=== PATIENT | female | born 1985 | race American Indian/Alaskan Native ===

== ENCOUNTER 2016-12-14 10:01 | Emergency (ER) | payer MEDICAID ==
[2016-12-14 10:19] VITALS: TEMP 98
--- NOTE | 2016-12-14 10:38 | ED PDOC ---
Arrival/HPI - General Chief Complaint: Lower Extremity Problem/Injury Time Seen by Provider: 12/14/16 10:29 Historian: Patient - History of Present Illness Narrative History of Present Illness (Text): 12/14/16 10:30 Darin Meehan is a 30 year old female who presents to the emergency department complaining of swelling and pain to left 3rd toe for 2 days. Patient reports that symptoms presented after she hit her toe against the bed frame. Reports that symptoms have not improved with time which prompted her to present to emergency department for evaluation. Denies taking any pain medication. Denies any numbness to the area, limited ROM, or any other complaints at this time. Time/Duration: < week (2 days ) Symptom Onset: Sudden Symptom Course: Improving Severity Level: Mild Activities at Onset: Light Context: Home Past Medical History - Provider Review Nursing Documentation Reviewed: Yes - Infectious Disease Hx of Infectious Diseases: None - Reproductive Menopause: No - Psychiatric Hx Substance Use: No - Anesthesia Hx Anesthesia: No Family/Social History - Physician Review Nursing Documentation Reviewed: Yes Family/Social History: No Known Family HX Smoking Status: Unknown If Ever Smoked Hx Alcohol Use: No Hx Substance Use: No Allergies/Home Meds Allergies/Adverse Reactions: Allergies seasonal Allergy (Uncoded 12/14/16 10:19) CONGESTION Review of Systems - Physician Review All systems were reviewed & negative as marked: Yes - Review of Systems Constitutional: Normal Respiratory: Normal Cardiovascular: Normal Musculoskeletal: Other (left 3rd toe pain and swelling. ) Psychiatric: Normal Physical Exam - Physical Exam Narrative Physical Exam (Text): Constitutional: No acute distress. Head: Normocephalic. Atraumatic. Eyes: PERRL. ENT: Moist mucous membranes. Neck: Supple. Cardiovascular: Regular rate. Chest: No tenderness. Respiratory: Clear to auscultation bilaterally. GI: Soft. Nontender. Nondistended. Back: No CVA tenderness. Musculoskeletal: tenderness to left 3rd digit proximal phalanx. Normal capillary refill. Skin: No rash. Neurologic: Alert, no focal deficit. Vital Signs Reviewed: Yes Vital Signs Temp Pulse Resp BP Pulse Ox 12/14/16 10:15 98 F 92 H 16 121/76 98 Temperature: Afebrile Blood Pressure: Normal Pulse: Regular Respiratory Rate: Normal Appearance: Positive for: Well-Appearing, Non-Toxic, Comfortable Pain Distress: None Mental Status: Positive for: Alert and Oriented X 3 Medical Decision Making ED Course and Treatment: 12/14/16 10:42 Impression: A 30 year old female who presents to the ed complaining of left 3rd toe pain for 2 days. Plan: -- X-ray -- Motrin -- Reassess and disposition Progress Notes: XR shows fracture of the proximal phalanx of the 3rd digit. Kaden tape, walking boot, crutches and instructed on their use, patient states she will make appointment for ortho. - RAD Interpretation Radiology Orders: 12/14/16 10:29 FOOT LEFT 3RD DIGIT (TOE) [RAD] Stat [employer] Pilot: ED Physician - Medication Orders Current Medication Orders: Discontinued Medications Ibuprofen (Motrin Tab) 600 mg PO STAT STA Stop: 12/14/16 10:30 Last Admin: 12/14/16 10:55 Dose: 600 MG MAR Pain/Vitals Document 12/14/16 10:55 WEB CONSULTANT (Rec: 12/14/16 10:57 WEB CONSULTANT [id number]) Pain Reassessment Is This A Pain ReAssessment? No - Scribe Statement The provider has reviewed the documentation as recorded by the Lucas Varela Provider Attestation: All medical record entries made by the Peteribpia were at my direction and personally dictated by me. I have reviewed the chart and agree that the record accurately reflects my personal performance of the history, physical exam, medical decision making, and the department course for this patient. I have also personally directed, reviewed, and agree with the discharge instructions and disposition. Disposition/Present on Arrival - Present on Arrival Any Indicators Present on Arrival: No History of DVT/PE: No History of Uncontrolled Diabetes: No Urinary Catheter: No History of Decub. Ulcer: No History Surgical Site Infection Following: None - Disposition Have Diagnosis and Disposition been Completed?: Yes Diagnosis: Toe fracture Disposition: HOME/ ROUTINE Disposition Time: 12:12 Patient Plan: Discharge Condition: STABLE Discharge Instructions (ExitCare): Toe Fracture (ED) Prescriptions: Ibuprofen [Motrin] 1 tab PO Q6 #30 tab Referrals: Seamus Becerril MD [Staff Provider] - Follow up with primary Forms: WORK NOTE
[2016-12-14 12:30] VITALS: BP 110/66; PULSE 68; RESP 18; O2SAT 99
--- NOTE | 2016-12-14 12:36 | RAD ---
Indication: Injury Left 3rd digit foot radiographs Comparison: None available Findings: Mildly displaced fracture deformity of the proximal 3rd phalanx with associated soft tissue swelling. No evidence of radiopaque foreign body. Remainder of the visualized osseous structures appear intact. No evidence of dislocation. Impression: Mildly displaced fracture deformity of the proximal 3rd phalanx with associated soft tissue swelling.
== END 2016-12-14 12:30 | disposition home or self-care (01) ==
LOC: ED 10:01 → MERGE 10:01 → ED 12:30
DX: S92.512A Displaced fracture of proximal phalanx of left lesser toe(s), initial encounter for closed fracture (principal); W22.03XA Walked into furniture, initial encounter; Y92.009 Unspecified place in unspecified non-institutional (private) residence as the place of occurrence of the external cause

== ENCOUNTER 2017-03-03 18:13 | Emergency (ER) | payer MEDICAID ==
[2017-03-03 18:25] VITALS: BMI 29.5
[2017-03-03 18:29] VITALS: BP 123/80; PULSE 92; RESP 16; TEMP 98.8
--- NOTE | 2017-03-03 18:31 | ED PDOC ---
Arrival/HPI - General Chief Complaint: Finger,Hand,&Wrist Time Seen by Provider: 03/03/17 18:26 Historian: Patient - History of Present Illness Narrative History of Present Illness (Text): 03/03/17 18:28 31yo female present with complaint of right had pain x 4days. Pain is localized to the 2nd MCP joint. She did not take any medication. Pain is usually when she makes a fist. Denies trauma, previous history, any other complaint. Past Medical History - Provider Review Nursing Documentation Reviewed: Yes - Infectious Disease Hx of Infectious Diseases: None - Psychiatric Hx Substance Use: No - Anesthesia Hx Anesthesia: No Family/Social History - Physician Review Nursing Documentation Reviewed: Yes Family/Social History: Unknown Family HX Smoking Status: Unknown If Ever Smoked Hx Alcohol Use: No Hx Substance Use: No Allergies/Home Meds Allergies/Adverse Reactions: Allergies seasonal Allergy (Uncoded 03/03/17 18:25) CONGESTION Review of Systems - Physician Review All systems were reviewed & negative as marked: Yes - Review of Systems Constitutional: Normal Eyes: Normal ENT: Normal Respiratory: Normal Cardiovascular: Normal Gastrointestinal: Normal Genitourinary Female: Normal Musculoskeletal: Arthralgias (Right hand) Skin: Normal Neurological: Normal Endocrine: Normal Hemo/Lymphatic: Normal Psychiatric: Normal Physical Exam Vital Signs Reviewed: Yes Vital Signs Temp Pulse Resp BP Pulse Ox 03/03/17 18:28 98.8 F 92 H 16 123/80 97 Temperature: Afebrile Blood Pressure: Normal Pulse: Regular Respiratory Rate: Normal Appearance: Positive for: Well-Appearing, Non-Toxic, Comfortable Pain Distress: None Mental Status: Positive for: Alert and Oriented X 3 - Systems Exam Head: Present: Atraumatic, Normocephalic Pupils: Present: PERRL Extroacular Muscles: Present: EOMI Conjunctiva: Present: Normal Mouth: Present: Moist Mucous Membranes Neck: Present: Normal Range of Motion Respiratory/Chest: Present: Clear to Auscultation, Good Air Exchange. No: Respiratory Distress, Accessory Muscle Use Cardiovascular: Present: Regular Rate and Rhythm, Normal S1, S2. No: Murmurs Abdomen: Present: Normal Bowel Sounds. No: Tenderness, Distention, Peritoneal Signs Back: Present: Normal Inspection Upper Extremity: Present: Normal ROM, NORMAL PULSES, Tenderness (Mild tenderness over the right 2nd MCP), Neurovascularly Intact, Capillary Refill < 2s. No: Cyanosis, Edema, Swelling, Erythema, Temperature Abnormalties, Deformity Lower Extremity: Present: Normal Inspection. No: Edema Neurological: Present: GCS=15, CN II-XII Intact, Speech Normal Skin: Present: Warm, Dry, Normal Color. 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 SENIA wrap applied. Referred to her PMD/Ortho. TRT ED for any new or worsening symptoms - RAD Interpretation Radiology Orders: 03/03/17 18:27 HAND RIGHT 3 VIEWS [RAD] Stat - Medication Orders Current Medication Orders: Discontinued Medications Ibuprofen (Motrin Tab) 600 mg PO STAT STA Stop: 03/03/17 18:29 Disposition/Present on Arrival - Present on Arrival Any Indicators Present on Arrival: No History of DVT/PE: No History of Uncontrolled Diabetes: No Urinary Catheter: No History of Decub. Ulcer: No History Surgical Site Infection Following: None - Disposition Have Diagnosis and Disposition been Completed?: Yes Diagnosis: Hand pain Disposition: HOME/ ROUTINE Disposition Time: 19:10 Patient Plan: Discharge Condition: STABLE Discharge Instructions (ExitCare): Arthralgia (ED) Additional Instructions: Follow up with your Doctor/Orthopedist Return to ED for any new or worsening symptoms Prescriptions: Ibuprofen [Motrin Tab] 600 mg PO Q6 #20 tab Referrals: Seamus Becerril MD [Staff Provider] - Follow up with primary
[2017-03-03 19:29] VITALS: O2SAT 99
--- NOTE | 2017-03-04 07:24 | RAD ---
PROCEDURE: Right Hand Radiographs. HISTORY: hand pain COMPARISON: None. FINDINGS: BONES: There is some overlap impeding optimal evaluation. No gross fracture noted. JOINTS: Normal. No osteoarthritic changes. SOFT TISSUES: Normal. OTHER FINDINGS: None. IMPRESSION: No gross fracture noted. Area of interest is not specifically identified either
== END 2017-03-03 19:29 | disposition home or self-care (01) ==
LOC: ED 18:13
DX: M25.541 Pain in joints of right hand (principal)

== ENCOUNTER 2017-09-22 12:26 | Emergency (ER) | payer MEDICAID ==
[2017-09-22 12:27] VITALS: BMI 29.5
[2017-09-22 12:34] VITALS: TEMP 99.1
--- NOTE | 2017-09-22 12:52 | ED PDOC ---
Arrival/HPI - General Chief Complaint: Female Genitourinary Time Seen by Provider: 09/22/17 12:51 Historian: Patient - History of Present Illness Narrative History of Present Illness (Text): 09/22/17 13:18 31 y/o female, no significant pmh, nkda, LMP 06/22/2017 which she recently had a miscarriage on 08/06/17 which she passed out the entire tissue and the vaginal bleeding resolved on 08/10/2017, c/o possible . Pt. stated that she took the test 3-4 days ago which she noted to be positive and wants beta hcg for confirmation. Pt. stated that she feels well, no nausea or vomiting, no fever or chills, no headache or abdominal pain, no pelvic pain, no numbness or tingling, no vaginal bleeding or discharge, no urinary symptoms, no other medical or psychological complaints. Past Medical History - Infectious Disease Hx of Infectious Diseases: None - Psychiatric Hx Psychophysiologic Disorder: No Hx Substance Use: No - Anesthesia Hx Anesthesia: No Family/Social History - Physician Review Nursing Documentation Reviewed: Yes Family/Social History: Unknown Family HX Smoking Status: Never Smoked Hx Alcohol Use: No Hx Substance Use: No Allergies/Home Meds Allergies/Adverse Reactions: Allergies seasonal Allergy (Uncoded 09/22/17 12:28) CONGESTION Home Medications: Home Meds Medication Instructions Recorded Confirmed Multivit/Folic Acid/I 1 tab PO DAILY 09/22/17 09/22/17 [] Review of Systems - Review of Systems Constitutional: absent: Fatigue, Fevers Eyes: absent: Vision Changes ENT: absent: Hearing Changes Respiratory: absent: SOB, Cough Cardiovascular: absent: Chest Pain Gastrointestinal: absent: Abdominal Pain, Nausea, Vomiting Genitourinary Female: absent: Dysuria, Frequency, Hematuria, Urine Output Changes, Vaginal Bleeding, Vaginal Discharge Musculoskeletal: absent: Arthralgias, Back Pain Skin: absent: Rash Neurological: absent: Headache, Dizziness Physical Exam Vital Signs Reviewed: Yes Vital Signs Temp Pulse Resp BP Pulse Ox 09/22/17 13:39 88 18 118/76 99 09/22/17 12:29 99.1 F 98 H 16 108/72 97 Temperature: Afebrile Blood Pressure: Normal Pulse: Regular Respiratory Rate: Normal Appearance: Positive for: Well-Appearing, Non-Toxic, Comfortable Pain Distress: None Mental Status: Positive for: Alert and Oriented X 3 - Systems Exam Head: Present: Atraumatic, Normocephalic Pupils: Present: PERRL Extroacular Muscles: Present: EOMI Conjunctiva: Present: Normal Mouth: Present: Moist Mucous Membranes Neck: Present: Normal Range of Motion Respiratory/Chest: Present: Clear to Auscultation, Good Air Exchange. No: Respiratory Distress, Accessory Muscle Use Cardiovascular: Present: Regular Rate and Rhythm, Normal S1, S2. No: Murmurs Abdomen: Present: Normal Bowel Sounds. No: Tenderness, Distention, Peritoneal Signs, Rebound, Guarding Genitourinary/Pelvic Exam: Present: Other (pt. declined) Back: Present: Normal Inspection. No: CVA Tenderness Upper Extremity: Present: Normal Inspection. No: Cyanosis, Edema Lower Extremity: Present: Normal Inspection. No: Edema Neurological: Present: GCS=15, Speech Normal, Gait Normal, Memory Normal Skin: Present: Warm, Dry, Normal Color. No: Rashes Psychiatric: Present: Alert, Oriented x 3, Normal Insight, Normal Concentration Medical Decision Making ED Course and Treatment: 09/22/17 12:52 -labs/beta hcg -UA -observe and reassess 09/22/17 14:55 -Blood type A+ -Labs are non-significant except wbc 14.2, no bandemia, afebrile, [place] [address], approx 5-6 weeks , asymptomatic. -UA show no UTI -Vitally stable, no fever, eating and drinking well, no discomfort, no nausea or vomiting, no headache and no neck stiffness, no medical complaints, understand that she will return to the ER for fever/chills or any discomforts. -I discussed with DR. Jose about the labs works including wbc -Discharge home with education on follow up with your own pmd and obyn within 2 days, [place] [address], follow up with your own pmd and obgyn within 2 days for wbc follow up in 3 days, return to the ER for any new or worsening signs or symptoms. - Lab Interpretations Lab Results: 09/22/17 13:40 09/22/17 13:40 Lab Results 09/22/17 13:56: Blood Type A POSITIVE, Antibody Screen Negative, BBK History Checked No verified bt 09/22/17 13:40: WBC 14.2 H, RBC 4.33, Hgb 12.6, Hct 36.6, MCV 84.5, MCH 29.1, MCHC 34.4, RDW 14.2, Plt Count 280, MPV 9.8, Gran % 74.7 H, Lymph % (Auto) 19.5 L, [place] % (Auto) 4.6, Eos % (Auto) 0.9 L, Baso % (Auto) 0.3, Gran # 10.61 H, Lymph # 2.8, [place] # 0.7 H, Eos # 0.1, Baso # 0.04 09/22/17 13:40: Sodium 137, Potassium 4.1, Chloride 100, Carbon Dioxide 26, Anion Gap 16, BUN 13, Creatinine 0.8, Est GFR ( Amer) > 60, Est GFR (Non- Af Amer) > 60, Random Glucose 89, Calcium 9.9, Total Bilirubin 0.6, AST 21, ALT 25, Alkaline Phosphatase 52, Total Protein 8.4 H, Albumin 4.7, Globulin 3.7, Albumin/Globulin Ratio 1.3 09/22/17 13:40: Beta HCG, Quant 71104.00 H 09/22/17 13:20: Urine Color Yellow, Urine Appearance Clear, Urine pH 8.0, Ur Specific [place] 1.020, Urine Protein Trace H, Urine Glucose (UA) Negative, Urine Ketones Trace H, Urine Blood Negative, Urine Nitrate Negative, Urine Bilirubin Negative, Urine Urobilinogen 4.0 H, Ur Leukocyte Esterase Negative, Urine RBC Negative, Urine WBC 0 - 2, Ur Epithelial Cells 6 - 8, Urine Other Mucus - PA / CARETAKER RESORT / Resident Statement MD/DO has reviewed & agrees with the documentation as recorded. Disposition/Present on Arrival - Present on Arrival Any Indicators Present on Arrival: No History of DVT/PE: No History of Uncontrolled Diabetes: No Urinary Catheter: No History of Decub. Ulcer: No History Surgical Site Infection Following: None - Disposition Have Diagnosis and Disposition been Completed?: Yes Diagnosis: , Leukocytosis Disposition: HOME/ ROUTINE Disposition Time: 14:55 Patient Plan: Discharge Condition: GOOD Additional Instructions: Discharge home with education on follow up with your own pmd and obyn within 2 days, [place] [address], follow up with your own pmd and obgyn within 2 days for wbc follow up in 3 days, return to the ER for any new or worsening signs or symptoms. Referrals: Gabe Griffin MD [Staff Provider] - Follow up with primary Jarrod Joseph MD [Staff Provider] - Follow up with primary [facility] [place] - Follow up with primary Forms: WORK NOTE
[2017-09-22 13:39] LABS: URINE BILIRUBIN NEGATIVE (NEGATIVE); URINE BLOOD NEGATIVE (NEGATIVE); URINE GLUCOSE (UA) NEGATIVE (NEGATIVE); URINE KETONE TRACE mg/dL (NEGATIVE); URINE LEUKOCYTE ESTERASE NEGATIVE Leu/uL (NEGATIVE); URINE PROTEIN TRACE mg/dL (<30 mg/dL)
[2017-09-22 13:40] LABS: URINE APPEARANCE CLEAR (CLEAR); URINE COLOR YELLOW (YELLOW)
[2017-09-22 13:41] VITALS: RESP 18; O2SAT 99
[2017-09-22 13:43] LABS: BASO # 0.04 K/mm3 (0.0-2.0); BASO % 0.3 % (0.0-3.0); EOS # 0.1 (0.0-0.7); EOS % 0.9 % (1.5-5.0); GRAN # 10.61 (1.4-6.5); GRAN % 74.7 % (50.0-68.0); HEMATOCRIT 36.6 % (36.0-48.0); LYMPH # 2.8 (1.2-3.4); LYMPH % 19.5 % (22.0-35.0); MEAN CELL VOLUME 84.5 fl (80.0-105.0); MEAN CORPUSCULAR HEMOGLOBIN 29.1 pg (25.0-35.0); MEAN CORPUSCULAR HGB CONC 34.4 g/dl (31.0-37.0); MEAN PLATELET VOLUME 9.8 fl (7.0-11.0); MONO # 0.7 (0.1-0.6); MONO % 4.6 % (1.0-6.0); RED CELL DISTRIBUTION WIDTH 14.2 % (11.5-14.5); WHITE BLOOD COUNT 14.2 10^3/ul (4.5-11.0)
[2017-09-22 13:49] LABS: URINE RBC NEGATIVE /hpf (0-2)
[2017-09-22 13:50] LABS: URINE WBC 0 - 2 /hpf (0-6)
[2017-09-22 13:58] LABS: ALKALINE PHOSPHATASE 52 U/L (38-126); ALT/SGPT 25 U/L (7-56); AST/SGOT 21 U/L (14-36); BILIRUBIN,TOTAL 0.6 mg/dL (0.2-1.3); BLOOD UREA NITROGEN 13 mg/dL (7-21); CALCIUM 9.9 mg/dL (8.4-10.5); CARBON DIOXIDE 26 mmol/L (21-33); CHLORIDE 100 mmol/L (98-107); GFR AFRICAN-AMERICAN > 60; GLUCOSE,RANDOM 89 mg/dL (70-110); POTASSIUM 4.1 mmol/L (3.6-5.0); SODIUM 137 mmol/L (132-148); TOTAL PROTEIN 8.4 g/dL (5.8-8.3)
[2017-09-22 13:59] LABS: ALB/GLOB RATIO 1.3 (1.1-1.8)
[2017-09-22 15:06] VITALS: BP 131/77; PULSE 86
== END 2017-09-22 15:01 | disposition home or self-care (01) ==
LOC: ED 12:26
DX: O26.899 Other specified pregnancy related conditions, unspecified trimester (principal); D72.829 Elevated white blood cell count, unspecified